=== PATIENT | male | born 1965 | race Caucasian/White ===

== ENCOUNTER 2018-07-21 23:36 | Emergency (ER) | payer OTHER ==
[~2018-07-21] VITALS: Ht 170.2 cm; Wt 56.7 kg
--- NOTE | 2018-07-22 00:16 | PHYS DOC ---
Past Medical History Past Medical History: Arthritis, Depression, Diabetes-Type II, Other Additional Past Medical Histor: cirrhosis of liver, insomnia, CHRONIC NECK PAIN Past Surgical History: No Surgical History Smoking: Cigarettes Alcohol Use: None Drug Use: Methamphetamine Adult General Chief Complaint Chief Complaint: PENIS PROBLEM HPI HPI Patient is a 52 year old MALE who presents with passing tissue from his urethra. This started sometime in the past month this happened intermittently. Has occasional dysuria. No fever. No flank pain. No blood in the urine. Patient denies any trauma. Denies any discharge from the urethra when he is not urinating. Patient is a diabetic patient who is poorly compliant on his medication. He has not seen his primary care physician for either his medicine or this issue since it has started. He missed his appointment sometime in the past week or so for follow-up on this. He denies any fevers. He admits to drug use with his last use of ICE being 2 days ago. [] Review of Systems Review of Systems Constitutional: Denies fever or chills [] Eyes: Denies change in visual acuity, redness, or eye pain [] HENT: Denies nasal congestion or sore throat [] Respiratory: Denies cough or shortness of breath [] Cardiovascular: No chest pain or palpitations[] GI: Denies abdominal pain, nausea, vomiting, bloody stools or diarrhea [] : Denies dysuria or hematuria, see history of present illness [] Musculoskeletal: Denies back pain or joint pain [] Integument: Denies rash or skin lesions [] Neurologic: Denies headache, focal weakness or sensory changes [] Endocrine: Denies polyuria or polydipsia [] All other systems were reviewed and found to be within normal limits, except as documented in this note. Allergies Allergies Allergies Coded Allergies Type Severity Reaction Last Updated Verified metformin Allergy Intermediate "It gives me horrible gas" 03/21/15 Yes Uncoded Allergies Type Severity Reaction Last Updated Verified unknown antidepressant gives me insomnia Allergy Mild "insomnia" 03/21/15 Physical Exam Physical Exam Constitutional: Well developed, well nourished, no acute distress, non-toxic appearance. [] HENT: Normocephalic, atraumatic, bilateral external ears normal, oropharynx moist, no oral exudates, nose normal. [] Eyes: PERRLA, EOMI, conjunctiva normal, no discharge. [] Neck: Normal range of motion, no tenderness, supple, no stridor. [] Cardiovascular:Heart rate regular rhythm, no murmur [] Lungs & Thorax: Bilateral breath sounds clear to auscultation [] Abdomen: Bowel sounds normal, soft, no tenderness, no masses, no pulsatile masses. : Normal male, circumcised, bilateral descended testes, no epididymal tenderness to palpation. No urethral discharge. No hernia. No tenderness to palpation. [] Skin: Warm, dry, no erythema, no rash. [] Back: No tenderness, no CVA tenderness. [] Extremities: No tenderness, no cyanosis, no clubbing, ROM intact, no edema. [] Neurologic: Alert and oriented X 3, normal motor function, normal sensory function, no focal deficits noted. [] Psychologic: Affect normal, judgement normal, mood normal. [] Current Patient Data Vital Signs Vital Signs Date Time Temp Pulse Resp B/P (MAP) Pulse Ox O2 Delivery O2 Flow Rate FiO2 07/21/18 23:37 97.9 111 18 147/82 (103) 99 Room Air 97.9 Lab Values Laboratory Tests Test 07/22/18 00:46 Urine Collection Type Unknown Urine Color Yellow Urine Clarity Clear Urine pH 7.0 Urine Specific [place] >=1.030 Urine Protein 30 mg/dL (NEG-TRACE) Urine Glucose (UA) >=1000 mg/dL (NEG) Urine Ketones (Stick) Negative mg/dL (NEG) Urine Blood Small (NEG) Urine Nitrite Negative (NEG) Urine Bilirubin Negative (NEG) Urine Urobilinogen Dipstick 0.2 mg/dL (0.2 mg/dL) Urine Leukocyte Esterase Negative (NEG) Urine RBC 6-10 /HPF (0-2) Urine WBC Occ /HPF (0-4) Urine Squamous Epithelial Cells Occ /LPF Urine Bacteria 0 /HPF (0-FEW) Urine Mucus Slight /LPF EKG EKG [] Radiology/Procedures Radiology/Procedures [] Course & Med Decision Making Course & Med Decision Making Pertinent Labs and Imaging studies reviewed. (See chart for details) ED course: The "tissue" that the patient reportedly urinated at home was taken from the room and noted to have what looked like words on it as it was being transferred to a specimen cup for pathology evaluation. This appears to be more of a tissue/napkin rather than a piece of sloughed tissue from the kidney, ureter, bladder, or urethra. Medical decision making: There is no evidence of UTI, no evidence of diabetic ketoacidosis given the negative ketones in the urine. We'll have patient follow up with his primary care physician[] Shabnam Disclaimer Shabnam Disclaimer This electronic medical record was generated, in whole or in part, using a voice recognition dictation system. Departure Departure Impression: Primary Impression: Poorly controlled diabetes mellitus Additional Impression: Dysuria Disposition: HOME, SELF-CARE Condition: IMPROVED Referrals: UNKNOWN PCP NAME (PCP) Patient Instructions: Dysuria, Type 2 Diabetes Mellitus, Adult Additional Instructions: Follow-up with your regular doctor within 2 days. Follow your diabetic diet. Return to the ER if worsening difficulty urinating or any other concerns. Problem Qualifiers LIEN HUTCHINS DO Jul 22, 2018 00:16
[2018-07-22 00:50] VITALS: BP 140/78
[2018-07-22 00:56] LABS: BILIRUBIN,URINE NEGATIVE (NEG); CLARITY,URINE CLEAR; COLOR,URINE YELLOW; NITRITE,URINE NEGATIVE (NEG); PROTEIN,URINE 30 mg/dL (NEG-TRACE); UROBILINOGEN,URINE 0.2 mg/dL (0.2 mg/dL)
[2018-07-22 01:00] LABS: BACTERIA,URINE 0 /HPF (0-FEW); SQUAMOUS EPITHELIAL CELL,UR OCC /LPF; WBC,URINE OCC /HPF (0-4)
== END 2018-07-22 01:07 | disposition home or self-care (01) ==
LOC: ER 07-22 00:23
DX: R30.0 Dysuria (principal); E11.9 Type 2 diabetes mellitus without complications; G89.29 Other chronic pain; F17.210 Nicotine dependence, cigarettes, uncomplicated; Z88.8 Allergy status to other drugs, medicaments and biological substances
CPT/HCPCS: 81001; 99283

== ENCOUNTER 2020-09-14 21:11 | Emergency (ER) | payer OTHER ==
[~2020-09-14] VITALS: Ht 170.2 cm; Wt 65.9 kg
[2020-09-14 22:40] LABS: BASO # 0.1 x10^3/uL (0.0-0.2); BASO % 1 % (0-3); EOS # 0.1 x10^3/uL (0.0-0.7); EOS % 1 % (0-3); HEMATOCRIT 39.7 % (39.0-53.0); HEMOGLOBIN 13.8 g/dL (13.0-17.5); LYMPH # 3.1 x10^3/uL (1.0-4.8); LYMPH % 32 % (24-48); MEAN CORPUSCULAR HEMOGLOBIN 32 pg (25-35); MEAN CORPUSCULAR HGB CONC 35 g/dL (31-37); MEAN CORPUSCULAR VOLUME 92 fL (79-100); MONO # 0.9 x10^3/uL (0.0-1.1); MONO % 10 % (0-9); NEUT # 5.5 x10^3/uL (1.8-7.7); NEUT % 56 % (31-73); PLATELET COUNT 275 x10^3/uL (140-400); RED BLOOD COUNT 4.33 x10^6/uL (4.30-5.70); RED CELL DISTRIBUTION WIDTH 13.9 % (11.5-14.5); WHITE BLOOD COUNT 9.8 x10^3/uL (4.0-11.0)
[2020-09-14 22:49] LABS: AMPHETAMINE/METHAMPHETAMINE POS (NEG); BARBITURATES NEG (NEG); BENZODIAZEPINES NEG (NEG); CANNABINOIDS POS (NEG); COCAINE NEG (NEG); METHADONE NEG (NEG); OPIATES POS (NEG); PHENCYCLIDINE NEG (NEG)
--- NOTE | 2020-09-14 22:57 | EKG ---
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
[2020-09-14 23:06] LABS: ALBUMIN 2.5 g/dL (3.4-5.0); ALBUMIN/GLOBULIN RATIO 0.6 (1.0-1.7); CALCIUM 8.6 mg/dL (8.5-10.1); CREATININE 1.3 mg/dL (0.7-1.3); GFR 57.3; POTASSIUM 4.7 mmol/L (3.5-5.1); TOTAL BILIRUBIN 0.2 mg/dL (0.2-1.0); TOTAL PROTEIN 6.5 g/dL (6.4-8.2)
--- NOTE | 2020-09-14 23:19 | RAD ---
Exam: Chest one view INDICATION: Chest pain TECHNIQUE: Frontal view of the chest Comparisons: None FINDINGS: The cardiomediastinal silhouette and pulmonary vessels are within normal limits. The lung and pleural spaces are clear. IMPRESSION: No acute cardiopulmonary process. Electronically signed by: Reji Adame MD (09/14/2020 11:17 PM) [facility]
--- NOTE | 2020-09-14 23:55 | PHYS DOC ---
Past Medical History Past Medical History: Arthritis, Depression, Diabetes-Type II, Other Additional Past Medical Histor: cirrhosis of liver, insomnia, CHRONIC NECK PAIN Past Surgical History: No Surgical History Smoking Status: Current Every Day Smoker Alcohol Use: Heavy Additional Information: 1/2 PINT OF VOKDA YESTERDAY Drug Use: Methamphetamine Social History Narrative: HE USED METH AND HEROIN YESTERDAY General Adult EDM: Chief Complaint: ALLEGED DOMESTIC ABUSE HPI: HPI: 54-year-old homeless male past medical history polysubstance abuse including methamphetamine and heroin, presents to the ED brought in by EMS with complaints of "my heart pounding," reports using heroin and methamphetamines yesterday (IVDU). Denies any cocaine abuse. Reports he has had diffuse upper, constant nonradiating chest pain for the past month. No recent alcohol abuse. When asked if suicidal or homicidal patient states "I want to get me back. No one to talk to a intelligent person." No known history of Covid. No associated syncope or head trauma. No personal or family history of AAA, AAD, CTD ([place] or marfans), cardiac arrhythmias (need for AICD), sudden or unexplainable (under 50 years of age or with exertion), or clotting disorders. Review of Systems: Review of Systems: Constitutional: Denies fever or chills. [] Eyes: Denies change in visual acuity or eye discharge HENT: Denies nasal congestion or sore throat. [] Respiratory: Denies cough or shortness of breath or hemoptysis Cardiovascular: Denies syncope or edema. [] GI: Denies abdominal pain, nausea, vomiting, bloody stools or diarrhea. [] : Denies dysuria or hematuria Musculoskeletal: Denies back pain or joint pain. [] Integument: Denies rash or diaphoresis Neurologic: Denies headache, neck pain focal weakness or sensory changes. [] Endocrine: Denies polyuria or polydipsia. [] Lymphatic: Denies swollen glands. [] Psychiatric: Denies depression or anxiety. [] Heart Score: C/O Chest Pain: Yes HEART Score for Chest Pain: HEART Score for Chest Pain Response (Comments) Value History Slighlty/Non-Suspicious 0 ECG Normal 0 Age >45 - < 65 1 Risk Factors 1 or 2 Risk Factors 1 Troponin < Normal Limit 0 Total 2 Risk Factors: Risk Factors: DM, Current or recent (<one month) smoker, HTN, HLP, family history of CAD, obesity. Risk Scores: Score 0 - 3: 2.5% MACE over next 6 weeks - Discharge Home Score 4 - 6: 20.3% MACE over next 6 weeks - Admit for Clinical Observation Score 7 - 10: 72.7% MACE over next 6 weeks - Early Invasive Strategies Allergies: Allergies: Allergies Coded Allergies Type Severity Reaction Last Updated Verified metformin Allergy Intermediate "It gives me horrible gas" 03/21/15 Yes Uncoded Allergies Type Severity Reaction Last Updated Verified unknown antidepressant gives me insomnia Allergy Mild "insomnia" 03/21/15 Physical Exam: PE: Constitutional: no acute distress, non-toxic/unkept/disheveled appearance. HENT: Normocephalic, atraumatic, no signs of trauma, dry mucous membranes Eyes: EOMI, conjunctiva normal, no discharge, no septal hematoma Neck: Normal range of motion, supple, Cardiovascular: S1/2 present, tachycardic Lungs & Thorax: Speaking in full sentences, bilateral equal chest rise, no tachypnea or increased work of breathing Abdomen: soft, no tenderness, Skin: Warm, dry, no erythema, no rash. [] Back: No tenderness, no CVA tenderness. [] Extremities: No tenderness, no cyanosis, no lower extremity edema, no IV track m arks, scabs over right forearm/no erythema Neurologic: Alert and oriented X 3, normal motor function, normal sensory function, no focal deficits noted. [] Psychologic: Affect normal, judgement normal, mood -hyperactive and vigilant, no psychosis or hallucinations Current Patient Data: Labs: Laboratory Tests Test 09/14/20 21:50 09/14/20 22:30 Urine Opiates Screen Pos (NEG) Urine Methadone Screen Neg (NEG) Urine Barbiturates Neg (NEG) Urine Phencyclidine Screen Neg (NEG) Urine Amphetamine/Methamphetamine Pos (NEG) Urine Benzodiazepines Screen Neg (NEG) Urine Cocaine Screen Neg (NEG) Urine Cannabinoids Screen Pos (NEG) Urine Ethyl Alcohol Pos (NEG) White Blood Count 9.8 x10^3/uL (4.0-11.0) Red Blood Count 4.33 x10^6/uL (4.30-5.70) Hemoglobin 13.8 g/dL (13.0-17.5) Hematocrit 39.7 % (39.0-53.0) Mean Corpuscular Volume 92 fL (79-100) Mean Corpuscular Hemoglobin 32 pg (25-35) Mean Corpuscular Hemoglobin Concent 35 g/dL (31-37) Red Cell Distribution Width 13.9 % (11.5-14.5) Platelet Count 275 x10^3/uL (140-400) Neutrophils (%) (Auto) 56 % (31-73) Lymphocytes (%) (Auto) 32 % (24-48) Monocytes (%) (Auto) 10 % (0-9) H Eosinophils (%) (Auto) 1 % (0-3) Basophils (%) (Auto) 1 % (0-3) Neutrophils # (Auto) 5.5 x10^3/uL (1.8-7.7) Lymphocytes # (Auto) 3.1 x10^3/uL (1.0-4.8) Monocytes # (Auto) 0.9 x10^3/uL (0.0-1.1) Eosinophils # (Auto) 0.1 x10^3/uL (0.0-0.7) Basophils # (Auto) 0.1 x10^3/uL (0.0-0.2) D-Dimer (Amy) 0.83 ug/mlFEU (0.00-0.50) H Sodium Level 124 mmol/L (136-145) L Potassium Level 4.7 mmol/L (3.5-5.1) Chloride Level 90 mmol/L (98-107) L Carbon Dioxide Level 30 mmol/L (21-32) Anion Gap 4 (6-14) L Blood Urea Nitrogen 29 mg/dL (8-26) H Creatinine 1.3 mg/dL (0.7-1.3) Estimated GFR (Cockcroft-Gault) 57.3 BUN/Creatinine Ratio 22 (6-20) H Glucose Level 557 mg/dL (70-99) *H Calcium Level 8.6 mg/dL (8.5-10.1) Total Bilirubin 0.2 mg/dL (0.2-1.0) Aspartate Amino Transferase (AST) 65 U/L (15-37) H Alanine Aminotransferase (ALT) 135 U/L (16-63) H Alkaline Phosphatase 124 U/L (46-116) H Troponin I Quantitative < 0.017 ng/mL (0.000-0.055) Total Protein 6.5 g/dL (6.4-8.2) Albumin 2.5 g/dL (3.4-5.0) L Albumin/Globulin Ratio 0.6 (1.0-1.7) L Lipase 110 U/L (73-393) Laboratory Tests 09/14/20 22:30 Laboratory Tests 09/14/20 22:30 Vital Signs: Vital Signs Date Time Temp Pulse Resp B/P (MAP) Pulse Ox O2 Delivery O2 Flow Rate FiO2 09/14/20 21:40 98.3 118 18 134/95 (108) 96 Room Air 98.3 EKG: EKG: Sinus tachycardia 108 bpm, no axis deviation, normal intervals, no T wave inversions, no ST elevations or ST depressions non pathologic Q waves in aVL Radiology/Procedures: Radiology/Procedures: IMAGING REPORT Signed PATIENT: SAGE ESTEVES ACCOUNT: [id number] : 1965 LOCATION: ER AGE: 54 SEX: M EXAM STATUS: REG ER ORD. PHYSICIAN: CRISTIAN ALONSO DO REASON: cp, meth/heroin use PROCEDURE: PORTABLE CHEST 1V Exam: Chest one view INDICATION: Chest pain TECHNIQUE: Frontal view of the chest Comparisons: None FINDINGS: The cardiomediastinal silhouette and pulmonary vessels are within normal limits. The lung and pleural spaces are clear. IMPRESSION: No acute cardiopulmonary process. Electronically signed by: Reji Lagunas MD (09/14/2020 11:17 PM) [facility] DICTATED and SIGNED BY: REJI LAGUNAS MD DATE: 09/14/20 [id number] IMAGING REPORT Signed PATIENT: SAGE ESTEVES ACCOUNT: [id number] : 1965 LOCATION: ER AGE: 54 SEX: M EXAM STATUS: REG ER ORD. PHYSICIAN: CRISTIAN ALONSO DO REASON: cp, r/o pe PROCEDURE: CT ANGIOGRAPHY CHEST CTA CHEST History: Chest pain Technique: CT of the chest was performed with intravenous contrast. PE protocol. Maximum intensity projection coronal and sagittal reconstructions were performed. Exposure: One or more of the following individualized dose reduction techniques were utilized for this examination: 1. Automated exposure control 2. Adjustment of the mA and/or kV according to patient size 3. Use of iterative reconstruction technique. Comparison: April 08, 2015 Findings: Chest: No pulmonary embolism. No aortic aneurysm or dissection. Mild paraseptal emphysema. No consolidation or pleural effusion. No pneumothorax. Mildly prominent right hilar lymph node, unchanged. Irregular right upper lobe pulmonary nodule measures 1.0 x 0.7 cm (series 3 image 86), increased compared to 2015. 0.2 cm left upper lobe pulmonary nodule fissure-based (image 34), unchanged. Calcified left lower lobe pulmonary nodule, likely prior granulomatous disease. Mild esophageal wall thickening. Upper abdomen: Atheromatous plaque within the infrarenal abdominal aorta. Bones: Chronic left posterior rib fractures. Impression: 1. No pulmonary embolism. 2. Increased right upper lobe irregular pulmonary nodule. Recommend PET CT to further evaluate. 3. Mild esophageal wall thickening. Correlate for esophagitis. Electronically signed by: Luis William DO (09/15/2020 1:20 AM) [facility] DICTATED and SIGNED BY: LUIS WILLIAM DO DATE: 09/15/20 [id number] Course & Med Decision Making: Course & Med Decision Making Pertinent Labs and Imaging studies reviewed. (See chart for details) Concern for polysubstance abuse in the setting of dehydration and tachycardia. D-dimer elevated. No signs of fungal infection in patient's oral cavity. Will prescribe Pepcid. CT report w/no PE, was printed and given to patient to follow- up with PCP. Labs with uncontrolled, nonketotic, no anion gap hyperglycemia. Repeat [id number]-mi-daar glucose 341. Pt denies SI/HI-no need for PAT team consult. Will discharge home with strict ED return precautions were given for syncope, neurologic deficits, chest pressure, hemoptysis or dyspnea. Encouraged urgent outpatient follow-up with PMD and cardiology for nonemergent outpatient evaluation. Life-threatening processes were considered but are low suspicion at this time, given history, physical exam and ED workup. Pt was educated on all prescription medications and adverse effects. All patient's questions were an swered and pt was stable at time of discharge. Life/limb-threatening differential includes but is not limited to, acute myocardial infarction, aortic dissection, congestive heart failure, esophageal injury including rupture, surgical abdomen, arrhythmia, cardiomyopathy, myocarditis, pericarditis, peptic ulcer disease, pneumomediastinum, pneumonia, pneumothorax, pulmonary embolus, unstable angina, rib fracture, contusion, pericardial tamponade or effusion, traumatic injury including mediastinal hemorrhage or hematoma, or pulmonary contusion. I spoken with the patient and her caregivers. I explained the patient's condition, diagnoses and treatment plan based on the information available to me at this time. I have answered the patient and her caregiver's questions and addressed any concerns. The patient and her caregivers have a good understanding of patient's diagnosis, condition and treatment plan as can be expected at this point. Vital signs have been stable. Patient's condition is stable and appropriate for discharge from the emergency department. Patient will pursue further outpatient evaluation with primary care physician or other designated or consulting physician as outlined in the discharge instructions. The patient and/or caregivers are agreeable to this plan of care and follow-up instructions have been explained in detail. The patient and/or caregivers have received these instructions in written form and have expressed an understanding of the discharge instructions. The patient and/or caregivers are aware that any significant change of condition or worsening of symptoms should prompt immediate return to this or the closest emergency department or call to 911. Shabnam Disclaimer: Shabnam Disclaimer: This electronic medical record was generated, in whole or in part, using a voice recognition dictation system. Departure Departure Impression: Primary Impression: Chest pain Additional Impressions: Polysubstance abuse Uncontrolled diabetes mellitus Disposition: 01 DC HOME SELF CARE/HOMELESS Condition: STABLE Referrals: NO PCP (PCP) FOLLOW UP WITH FAMILY MEDICINE: in 2 days Family Medicine Address: [address] [place] [address] Patient Instructions: Chest Pain (Nonspecific), Diabetes Meal Planning Guide, Polysubstance Abuse Additional Instructions: FOLLOW UP WITH CARDIOLOGY: [facility] Address: [address] [place] [address] EMERGENCY DEPARTMENT GENERAL DISCHARGE INSTRUCTIONS Thank you for coming to [facility] Emergency Department (ED) today and trusting us with you care. We trust that you had a positive experience in our Emergency Department. If you wish to speak to the department management, you may call the Director at [phone]. YOUR FOLLOW UP INSTRUCTIONS ARE FOLLOWS: 1. Do you have a private Doctor? If you do not have a private doctor, please ask for a resource list of physicians or clinics that may be able to assist you with follow up care. 2. The Emergency Physicain has interpreted your x-rays. The X-Ray specialist will also review them. If there is a change in the findings, you will be notified in 48 hours when at all possible. 3. A lab test or culture has been done, your results will be reviewed and you will be notified if you need a change in treatment. ADDITIONAL INSTRUCTIONS AND INFORMATION: 1. Your care today has been supervised by a physician who is specially trained in emergency care. Many problems require more than one evaluation for a complete diagnosis and treatment. We recommend that you schedule your follow up appointment as recommended to ensure complete treatment of you illness or injury. If you are unable to obtain follow up care and continue to have a problem, or if your condition worsens, we recommend that you return to the ED. 2. We are not able to safely determine your condition over the phone nor are we able to give sound medical advice over the phone. For these safety reasons, if you call for medical advice we will ask you to come to the ED for further evaluation. 3. If you have any questions regarding these discharge instructions please call the ED at [phone]. SAFETY INFORMATION: In the interest of safety, wellness, and injury prevention; we encourage you to wear your sealbelt, if you smoke; quite smoking, and we encourage family to use a protective helmet for bicycling and other sporting events that present an increased risk for head injury. IF YOUR SYMPTOMS WORSEN OR NEW SYMPTOMS DEVELOP, OR YOU HAVE CONCERNS ABOUT YOUR CONDITION; OR IF YOUR CONDITION WORSENS WHILE YOU ARE WAITING FOR YOUR FOLLOW UP APPOINTMENT; EITHER CONTACT YOUR PRIMARY CARE DOCTOR, THE PHYSICIAN WHOSE NAME AND NUMBER YOU WERE GIVEN, OR RETURN TO THE ED IMMEDIATELY. Scripts Famotidine (PEPCID) 20 Mg Tablet 20 MG PO BID, #14 TAB Prov: CRISTIAN ALONSO DO 09/15/20 CRISTIAN ALONSO DO Sep 14, 2020 23:55
[2020-09-15] MEDS ORDERED: IV NORMAL SALINE 1000ML BAG 1,000 ML IV ONE
[2020-09-15] MEDS ORDERED: MULTIVIT INFUSN,ADULT 4,VIT K 10 ML, THIAMINE INJ 100 MG, FOLIC ACID INJ 1 MG in IV NOR... IV ONE
[2020-09-15] MEDS ORDERED: CONTRAST GIVEN. MC PRN (00:15)
[2020-09-15] MEDS ORDERED: IOHEXOL 350 MG/ML 100 ML VIAL. IV ONE (00:15)
--- NOTE | 2020-09-15 01:22 | RAD ---
CTA CHEST History: Chest pain Technique: CT of the chest was performed with intravenous contrast. PE protocol. Maximum intensity pr ojection coronal and sagittal reconstructions were performed. Exposure: One or more of the following individualized dose reduction techniques were utilized for thi s examination: 1. Automated exposure control 2. Adjustment of the mA and/or kV according to patient size 3. Use of iterative reconstruction technique. Comparison: April 08, 2015 Findings: Chest: No pulmonary embolism. No aortic aneurysm or dissection. Mild paraseptal emphysema. No consol idation or pleural effusion. No pneumothorax. Mildly prominent right hilar lymph node, unchanged. Irregular right upper lobe pulmonary nodule measures 1.0 x 0.7 cm (series 3 image 86), increased comp ared to 2015. 0.2 cm left upper lobe pulmonary nodule fissure-based (image 34), unchanged. Calcified left lower lobe pulmonary nodule, likely prior granulomatous disease. Mild esophageal wall thickening. Upper abdomen: Atheromatous plaque within the infrarenal abdominal aorta. Bones: Chronic left posterior rib fractures. Impression: 1. No pulmonary embolism. 2. Increased right upper lobe irregular pulmonary nodule. Recommend PET CT to further evaluate. 3. Mild esophageal wall thickening. Correlate for esophagitis. Electronically signed by: Luis Monterroso DO (09/15/2020 1:20 AM) [facility]
[2020-09-15] MEDS ORDERED: FAMO-63 PO (01:37)
[2020-09-15 01:40] VITALS: BP 158/91
== END 2020-09-15 02:00 | disposition home or self-care (01) ==
LOC: ER 21:11
DX: R07.89 Other chest pain (principal); F19.10 Other psychoactive substance abuse, uncomplicated; E11.9 Type 2 diabetes mellitus without complications; G89.29 Other chronic pain; F17.200 Nicotine dependence, unspecified, uncomplicated; Z59.0 Homelessness; Z88.1 Allergy status to other antibiotic agents
CPT/HCPCS: 36415; 71045; 71275; 80053; 80307; 82962; 83690; 84484; 85025; 85379; 93005; 96365; 99285; G0480; J3411; J3490; J7030; Q9967